=== PATIENT | female | born 1975 | race Caucasian/White ===

== ENCOUNTER → 2017-11-18 | Outpatient (CLI) | payer BC ==
--- NOTE | 2017-11-18 10:41 | MM ---
Reason for exam: clinical finding. Last mammogram was performed 4 years and 6 months ago. History: Family history of breast cancer in grandmother. Took hormonal contraceptives beginning at age 18. Physical Findings: Nurse did not find any significant physical abnormalities on exam. MG 3D Diag Mammo W/Cad CRISTOPHER Bilateral CC and MLO view(s) were taken. Prior study comparison: May 09, 2013, CAD bilateral diagnostic mammogram. The breast tissue is heterogeneously dense. This may lower the sensitivity of mammography. There is chronic nodularity in the left breast, stable. No significant new findings when compared with previous films. These results were verbally communicated with the patient and result sheet given to the patient on 11/18/17. ASSESSMENT: Benign, BI-RAD 2 RECOMMENDATION: Routine screening mammogram of both breasts in 1 year.
== END | disposition home or self-care (01) ==
LOC: RADMAMWWP 07:40
PROVIDERS: ATTEND Family Medicine
DX: N64.4 Mastodynia (principal)
CPT/HCPCS: 77066; G0279

== ENCOUNTER → 2018-09-08 | Outpatient (CLI) | payer BC ==
[2018-09-09 00:29] LABS: T4, Free (Free Thyroxine) 1.1 ng/dL (0.80-1.80)
== END | disposition home or self-care (01) ==
LOC: LABWHC1 17:17
PROVIDERS: ATTEND Internal Medicine
DX: E06.3 Autoimmune thyroiditis (principal)
CPT/HCPCS: 36415; 84439; 84443

== ENCOUNTER → 2018-09-27 | Outpatient (CLI) | payer BC ==
[2018-09-27 17:51] LABS: Basophils # (A) 0.1 k/uL (0-0.2); Basophils % (A) 1 %; Eosinophils # (A) 0.3 k/uL (0-0.7); Eosinophils % (A) 2 %; HCT 41.2 % (34.0-46.0); HGB 13.2 gm/dL (11.4-16.0); Lymphocytes # (A) 3.3 k/uL (1.0-4.8); Lymphocytes % (A) 28 %; MCH 29.1 pg (25.0-35.0); MCHC 32.2 g/dL (31.0-37.0); MCV 90.6 fL (80.0-100.0); Mean Platelet Volume 7.5; Monocytes # (A) 0.7 k/uL (0-1.0); Monocytes % (A) 6 %; Neutrophils # (A) 7.3 k/uL (1.3-7.7); Neutrophils % (A) 62 %; Platelet Count 288 k/uL (150-450); RBC 4.54 m/uL (3.80-5.40); WBC 11.9 k/uL (3.8-10.6)
== END ==
LOC: LABPAT 17:09
PROVIDERS: ATTEND Obstetrics & Gynecology
DX: Z01.812 Encounter for preprocedural laboratory examination (principal); N92.0 Excessive and frequent menstruation with regular cycle; N94.6 Dysmenorrhea, unspecified
CPT/HCPCS: 36415; 85025

== ENCOUNTER 2018-10-11 08:47 | Day surgery (SDC) | payer BC ==
[2018-10-04 13:25] VITALS: BMI 27.8
[~2018-10-11 08:47] MED LIST: DEXAMETHASONE SOD PHOSPHATE 10 MG/ML 1 ML VIAL IV ONE; LACTATED RINGERS 1,000 ML IV SCH; ONDANSETRON 4 MG/2 ML VIAL IVP ONE; Pre Op ABX Message 1 EACH MISC MISCELLANE ONE
[2018-10-11] MEDS ORDERED: LIDOCAINE 1% 20 ML VIAL (10MG/ML) FOR IV START INTRADERMA ONE (09:25)
[2018-10-11] MEDS ORDERED: MIDAZOLAM 2 MG/2 ML VIAL ONE (10:17)
[2018-10-11] MEDS ORDERED: KETOROLAC 30 MG/ML 1 ML VIAL ONE (10:17)
[2018-10-11] MEDS ORDERED: fentaNYL (PF) 50 MCG/ML 2 ML AMP ONE (10:17)
[2018-10-11] MEDS ORDERED: PROPOFOL 10 MG/ML 20 ML VIAL IV ONE (10:17)
[2018-10-11] MEDS ORDERED: LIDOCAINE 1% INJ 10MG/ML (20 ML MDV) ONE (10:17)
--- NOTE | 2018-10-11 10:50 | P.OP ---
Date of Procedure: 10/11/18 Preoperative Diagnosis: Menorrhagia, dysmenorrhea Postoperative Diagnosis: Same, normal-appearing uterine cavity Procedure(s) Performed: Hysteroscopy, NovaSure endometrial ablation Anesthesia: RANDOLPHA Surgeon: Alma Delarosa Estimated Blood Loss (ml): 5 IV fluids (ml): 300 Urine output (ml): 50 Description of Procedure: Patient is brought to the operating suite where a general anesthetic is administered without difficulty. She's placed in the dorsal lithotomy position. The cervix, vagina, perineum are all prepped and draped in usual sterile fashion. Urine hCG is negative. The appropriate timeout is performed to assure proper patient and procedural identification. Examination under anesthesia reveals a small anteverted uterus, negative adnexa bilaterally. Bladder is drained for approximately 50 mL of clear yellow urine. Weighted speculum was placed into the vagina and the anterior lip of the cervix is grasped with a double-tooth tenaculum. Cervix is gently and systematically dilated using Hanks dilators after the uterus sounds to a depth of 8 cm in the anteverted position. Hysteroscope was placed and fluid is infused. Cavity is distended and inspected. There are no polyps, septa, or defects. Hysteroscope was removed. The NovaSure wand is then placed into the cavity and seated properly. Uterine length of 5.0 cm, width of 4.1 cm is calibrated. For 63 seconds and a power of 113 W the procedure is carried out. When the machine turned off the wand is reduced and removed. Hyst eroscope was once again placed, cavity is distended and noted to be uniformly blanched. All sponge needle and enhancement counts are correct at the and of the procedure. Cervix is clean and dry. Patient is brought back to recovery room in excellent condition with stable vital signs including a pulse of 53, pressure 95/52. Toradol is given prior to leaving the operative room. Patient will foll ow-up with me in the office in 2 weeks.
[2018-10-11 11:00] VITALS: TEMP 97.8
[2018-10-11 11:06] VITALS: RESP 16
[2018-10-11] MEDS: HYDROmorphone 0.5 MG/0.5 ML SYRINGE IVP PRN ×2 (11:33→11:42)
[2018-10-11 12:10] VITALS: BP 101/58; PULSE 74
== END 2018-10-11 12:21 | disposition home or self-care (01) ==
LOC: OR 08:47
PROVIDERS: ATTEND Obstetrics & Gynecology
DX: N92.0 Excessive and frequent menstruation with regular cycle (principal); N94.6 Dysmenorrhea, unspecified; N83.209 Unspecified ovarian cyst, unspecified side; E78.5 Hyperlipidemia, unspecified; I49.9 Cardiac arrhythmia, unspecified; F17.210 Nicotine dependence, cigarettes, uncomplicated; Q17.8 Other specified congenital malformations of ear; Z79.890 Hormone replacement therapy
CPT/HCPCS: 81025; 58563; J2250; J1100; J2405; J2001; J3010; J1885; J2704; J1170

== ENCOUNTER → 2019-01-09 | Outpatient (CLI) | payer BC ==
[2019-01-09 23:35] LABS: T4, Free (Free Thyroxine) 1.2 ng/dL (0.80-1.80)
== END | disposition home or self-care (01) ==
LOC: LABWHC1 17:12
PROVIDERS: ATTEND Internal Medicine
DX: E06.3 Autoimmune thyroiditis (principal)
CPT/HCPCS: 36415; 84439; 84443

== ENCOUNTER → 2020-06-03 | Outpatient (CLI) | payer BC ==
--- NOTE | 2020-06-05 10:55 | MM ---
Reason for exam: screening (asymptomatic). Last mammogram was performed 2 years and 6 months ago. History: Family history of breast cancer in grandmother. Took hormonal contraceptives beginning at age 18. Physical Findings: A clinical breast exam by your physician is recommended on an annual basis and results should be correlated with mammographic findings. MG 3D Screening Mammo W/Cad Bilateral CC and MLO view(s) were taken. Prior study comparison: November 18, 2017, bilateral MG 3d diag mammo w/cad CRISTOPHER. May 09, 2013, CAD bilateral diagnostic mammogram. The breast tissue is heterogeneously dense. This may lower the sensitivity of mammography. Finding: There is a oval lobulated mass in the upper outer quadrant of the left breast. No significant changes in finding since November 18, 2017 and May 09, 2013. ASSESSMENT: Benign, BI-RAD 2 RECOMMENDATION: Routine screening mammogram of both breasts in 1 year.
== END | disposition home or self-care (01) ==
LOC: RADMAMWWP 08:12
PROVIDERS: ATTEND Family Medicine
DX: Z12.31 Encounter for screening mammogram for malignant neoplasm of breast (principal)
CPT/HCPCS: 77063; 77067

== ENCOUNTER 2021-04-12 21:10 | Emergency (ER) | payer BC ==
[2021-04-12 21:15] VITALS: BP 154/87; TEMP 98.2
--- NOTE | 2021-04-12 21:42 | ED ---
Upper Extremity HPI - General Chief Complaint: Extremity Injury, Upper Stated Complaint: L arm pain & swelling Time Seen by Provider: 04/12/21 21:16 Source: patient Mode of arrival: ambulatory Limitations: no limitations - History of Present Illness Initial Comments: 45 year-old female patient presents to the emergency department for evaluation of redness and swelling to the left upper arm. States she was walking through the grocery store when she felt a sharp pain in her arm. States that the area has become red and swollen. Denies any fever or chills. She does not believe she was stung or bitten by anything. Denies swelling or pain radiating down the arm. Denies any known injury. Does have history of lymph node surgery to the left axilla. Does not have any history of cancer. No trauma to the arm. - Related Data Home Medications Medication Instructions Recorded Confirmed Levothyroxine Sodium [Synthroid] 75 mcg PO QAM 10/04/18 10/11/18 Allergies Allergy/AdvReac Type Severity Reaction Status Date / Time No Known Allergies Allergy Verified 04/12/21 21:15 Review of Systems ROS Statement: Those systems with pertinent positive or pertinent negative responses have been documented in the HPI. ROS Other: All systems not noted in ROS Statement are negative. Past Medical History Past Medical History: Thyroid Disorder History of Any Multi-Drug Resistant Organisms: None Reported Past Surgical History: Ear Surgery Additional Past Surgical History / Comment(s): clovis arm surgery Past Psychological History: No Psychological Hx Reported Smoking Status: Current every day smoker Past Alcohol Use History: None Reported Past Drug Use History: None Reported General Exam Limitations: no limitations General appearance: alert, in no apparent distress, other (This is a well- developed, well-nourished adult female patient in no acute distress. Vital signs upon presentation are temperature 98.2F, pulse 111, respirations 20, blo od pressure 154/87, pulse ox 99% on room air.) ENT exam: Present: normal exam, normal oropharynx, mucous membranes moist Respiratory exam: Present: normal lung sounds bilaterally. Absent: respiratory distress, wheezes, rales, rhonchi, stridor Cardiovascular Exam: Present: regular rate, normal rhythm, normal heart sounds. Absent: systolic murmur, diastolic murmur, rubs, gallop, clicks Extremities exam: Present: normal inspection, full ROM, normal capillary refill, other (Patch of erythema, swelling, warmth to the left upper arm. Radial pulses 2+.). Absent: tenderness, pedal edema, joint swelling, calf tenderness Neurological exam: Present: alert, oriented X3, CN II-XII intact Psychiatric exam: Present: normal affect, normal mood Skin exam: Present: warm, dry, intact, normal color. Absent: rash Course Vital Signs 04/12/21 04/12/21 21:11 22:52 Temperature 98.2 F Pulse Rate 111 H 86 Respiratory 20 16 Rate Blood Pressure 154/87 O2 Sat by Pulse 99 98 Oximetry Medical Decision Making - Medical Decision Making 45-year-old female patient presents to the emergency department today for evalu ation of left arm redness and swelling. Physical examination did reveal a patch of erythema with swelling and warmth. Ultrasound of the left arm did showed no evidence for DVT. I did discuss findings and results with the patient. We discussed possible bug bite or sting for as a cause for her symptoms. Physical appearance does appear consistent with this. She is given hydrocortisone cream to apply. Instructed take Benadryl as needed. She is instructed to follow up with her primary care physician for recheck in 1-2 days. Return parameters were discussed in detail. She verbalizes understanding and agrees with this plan. My attending is Dr. Robison. - Radiology Data Radiology results: report reviewed, image reviewed Ultrasound of the left arm is obtained. Report reviewed in its entirety. Impression by Dr. rByant shows no sign of deep pain thrombosis in the left arm. Disposition Clinical Impression: Left arm pain Disposition: HOME SELF-CARE Condition: Good Instructions (If sedation given, give patient instructions): Insect Bite or Sting (ED), Arm Pain (ED) Additional Instructions: Use cream three times daily to aid with itching and swelling. Follow up with your primary care physician for recheck in 1-2 days. Return for any new, worsening, or concerning symptoms. Is patient prescribed a controlled substance at d/c from ED?: No Referrals: Fredy Tobias III, MD [Primary Care Provider] - 1-2 days Time of Disposition: 22:31
--- NOTE | 2021-04-12 22:25 | US ---
EXAMINATION TYPE: US venous doppler duplex UE LT DATE OF EXAM: 04/12/2021 COMPARISON: NONE CLINICAL HISTORY: Left arm redness/swelling. SIDE PERFORMED: left Left Arm: Negative for DVT Area of redness scanned, no superficial thrombus seen. IMPRESSION: No sign of deep vein thrombosis in the left arm.
[2021-04-12] MEDS ORDERED: HYDROCORTISONE 1% CREAM 30 GM TUBE TOPICAL STA (22:30)
[2021-04-12 22:52] VITALS: PULSE 86; RESP 16
== END 2021-04-12 22:52 | disposition home or self-care (01) ==
LOC: EC 21:10
DX: M79.602 Pain in left arm (principal); M79.89 Other specified soft tissue disorders; F17.200 Nicotine dependence, unspecified, uncomplicated; Z79.890 Hormone replacement therapy
CPT/HCPCS: 99283

== ENCOUNTER → 2021-11-18 | Outpatient (CLI) | payer BC ==
--- NOTE | 2021-11-18 17:08 | US ---
EXAMINATION TYPE: US abd limited kidneys/bladder DATE OF EXAM: 11/18/2021 COMPARISON: NONE CLINICAL HISTORY: M54.50 Low Back Pain. EXAM MEASUREMENTS: Liver Length: 11.7 cm Gallbladder Wall: 0.3 cm CBD: 0.2 cm Right Kidney: 10.8 x 3.9 x 3.9 cm Left Kidney: 10.3 x 5.3 x 4.2 cm Pancreas: Obscured by bowel gas Liver: wnl Gallbladder: wnl CBD: wnl Right Kidney: No hydronephrosis or masses seen Left Kidney: echogenic foci, probable stone measuring 0.4 x 0.2 x 0.4cm Bladder: not fully distended, urinary bladder wall thickening would be difficult to exclude. IMPRESSION: 1. Left renal calcification without obstruction. 2. Nondistended urinary bladder. This may account for apparent wall thickening. Consider additional w orkup of the urinary bladder.
== END | disposition home or self-care (01) ==
LOC: RADUSWWP 09:00
PROVIDERS: ATTEND Family Medicine
DX: N28.89 Other specified disorders of kidney and ureter (principal); N32.89 Other specified disorders of bladder
CPT/HCPCS: 76705; 76770

== ENCOUNTER → 2021-11-27 | Outpatient (CLI) | payer BC ==
--- NOTE | 2021-11-28 11:51 | MM ---
Reason for exam: screening (asymptomatic). Last mammogram was performed 1 year and 6 months ago. History: Family history of breast cancer in grandmother. Took hormonal contraceptives beginning at age 18. Physical Findings: A clinical breast exam by your physician is recommended on an annual basis and results should be correlated with mammographic findings. MG 3D Screening Mammo W/Cad Bilateral CC and MLO view(s) were taken. Prior study comparison: June 03, 2020, bilateral MG 3d screening mammo w/cad. November 18, 2017, bilateral MG 3d diag mammo w/cad CRISTOPHER. The breast tissue is heterogeneously dense. This may lower the sensitivity of mammography. There is no discrete abnormality. ASSESSMENT: Negative, BI-RAD 1 RECOMMENDATION: Routine screening mammogram of both breasts in 1 year.
== END | disposition home or self-care (01) ==
LOC: RADMAMWWP 16:54
PROVIDERS: ATTEND Family Medicine
DX: Z12.31 Encounter for screening mammogram for malignant neoplasm of breast (principal); Z80.3 Family history of malignant neoplasm of breast
CPT/HCPCS: 77063; 77067

== ENCOUNTER → 2021-12-01 | Outpatient (CLI) | payer BC ==
--- NOTE | 2021-12-01 13:12 | XR ---
EXAMINATION TYPE: XR KUB DATE OF EXAM: 12/01/2021 HISTORY: Pain Comparison: None.Single KUB is submitted for interpretation. Findings: Right renal calculi: None Visualized. Right ureteral calculi: None Visualized. Left renal calculi: None Visualized. Left ureteral calculi: None Visualized. Pelvic calcifications: Calcification left hemipelvis. Bowel gas pattern is unremarkable. No free air. No mass effects. IMPRESSION: 1. No definite renal or ureteral calculi seen.
== END | disposition home or self-care (01) ==
LOC: RADXRMAIN 12:20
PROVIDERS: ATTEND Urology
DX: R10.9 Unspecified abdominal pain (principal)
CPT/HCPCS: 74018

== ENCOUNTER 2022-04-17 08:17 | Emergency (ER) | payer BC ==
[2022-04-17 09:02] VITALS: RESP 18
[2022-04-17] MEDS ORDERED: KETOROLAC 15 MG/ML 1 ML VIAL IVP STA (09:05)
[2022-04-17] MEDS ORDERED: DEXAMETHASONE SOD PHOSPHATE 10 MG/ML 1 ML VIAL IVP SCH (09:15)
--- NOTE | 2022-04-17 09:16 | ED ---
URI HPI - General Chief Complaint: Upper Respiratory Infection Stated Complaint: Shoulder pain Time Seen by Provider: 04/17/22 09:04 Source: patient, RN notes reviewed Mode of arrival: ambulatory Limitations: no limitations - History of Present Illness Initial Comments: This is a 46-year-old female who presents to the emergency department for left shoulder pain, palpitations, and chest discomfort. She is 9 days out from testing positive for COVID. She was feeling well until last night, when she developed the shoulder pain and chest discomfort. States she has a history of tachycardia, however she currently feels like it is much worse. The shoulder pain is only is triggered by breathing. It is not reproducible with movement. Denies any history of cardiac or pulmonary conditions. She was given a prescription for Paxlovid, however she has not been taking it because she "does not want to". Denies any fevers, chills, sore throat, cough, abdominal pain, nausea, vomiting, diarrhea, back pain, or headaches. Context: other (COVID) Associated Symptoms: chest pain, shortness of breath Treatments Prior to Arrival: none - Related Data Home Medications Medication Instructions Recorded Confirmed Cholecalciferol [Vitamin D3 (25 25 mcg PO DAILY 04/17/22 04/17/22 Mcg = 1000 Iu)] Elderberry Fruit and Flower [Black 1 cap PO DAILY 04/17/22 04/17/22 Elderberry 575 mg Cap] Ibuprofen [Motrin Ib] 600 mg PO HS 04/17/22 04/17/22 Levothyroxine Sodium [Synthroid] 100 mcg PO DAILY 04/17/22 04/17/22 Loratadine [Claritin] 10 mg PO DAILY PRN 04/17/22 04/17/22 Multivitamins, Thera [Multivitamin 1 tab PO DAILY 04/17/22 04/17/22 (formulary)] Previous Rx's Medication Instructions Recorded dexAMETHasone 6 mg PO QAM 5 Days #5 tablet 04/17/22 Allergies Allergy/AdvReac Type Severity Reaction Status Date / Time No Known Allergies Allergy Verified 04/17/22 11:25 Review of Systems ROS Statement: Those systems with pertinent positive or pertinent negative responses have been documented in the HPI. ROS Other: All systems not noted in ROS Statement are negative. Past Medical History Past Medical History: Thyroid Disorder History of Any Multi-Drug Resistant Organisms: None Reported Past Surgical History: Ear Surgery Additional Past Surgical History / Comment(s): clovis arm surgery Past Psychological History: No Psychological Hx Reported Smoking Status: Current every day smoker Past Alcohol Use History: Occasional Past Drug Use History: None Reported General Exam Limitations: no limitations General appearance: alert, in no apparent distress Head exam: Present: atraumatic, normocephalic, normal inspection Respiratory exam: Present: normal lung sounds bilaterally. Absent: respiratory distress, wheezes, rales, rhonchi, stridor Cardiovascular Exam: Present: normal rhythm, tachycardia, normal heart sounds. Absent: systolic murmur, diastolic murmur, rubs, gallop, clicks Extremities exam: Present: other (Minor discomfort with active and passive range of motion of the left shoulder. No palpable tenderness. No swelling, ecchymosis, erythema, or obvious deformities.) Neurological exam: Present: alert, oriented X3, CN II-XII intact Psychiatric exam: Present: normal affect, normal mood Skin exam: Present: warm, dry, intact, normal color. Absent: rash Course Vital Signs 04/17/22 04/17/22 04/17/22 08:59 09:48 11:31 Temperature 98.1 F 98 F Pulse Rate 102 H 98 92 Respiratory 18 18 18 Rate Blood Pressure 123/66 124/68 122/70 O2 Sat by Pulse 99 99 99 Oximetry Medical Decision Making - Medical Decision Making This is a 46-year-old female who presents to the emergency department for left shoulder pain associated with chest discomfort. Chest x-ray had no acute cardiopulmonary process. Lab work was nonactionable. She does not have an elevated troponin or d-dimer to suggest a pulmonary embolus or cardiac damage. Patient was given Toradol and Decadron, and noted substantial improvement in symptoms afterwards. Patient discharged home in stable condition. Prescription for 5 day course of Decadron was provided for additional symptom medical management. Return precautions reviewed in depth, the patient is instructed to return to the emergency department with any new, worsening, or concerning symptoms. Patient verbalized understanding. This case was discussed in detail with the attending ED physician. Presentation, findings, and treatment plan discussed in detail as well. - Lab Data Result diagrams: 04/17/22 09:45 04/17/22 09:45 Lab Results 04/17/22 04/17/22 04/17/22 Range/Units 09:45 09:45 09:45 WBC 7.9 (3.8-10.6) k/uL RBC 5.11 (3.80-5.40) m/uL Hgb 15.2 (11.4-16.0) gm/dL Hct 46.5 H (34.0-46.0) % MCV 90.9 (80.0-100.0) fL MCH 29.7 (25.0-35.0) pg MCHC 32.6 (31.0-37.0) g/dL RDW 12.1 (11.5-15.5) % Plt Count 344 (150-450) k/uL MPV 8.0 Neutrophils % 61 % Lymphocytes % 30 % Monocytes % 5 % Eosinophils % 2 % Basophils % 1 % Neutrophils # 4.8 (1.3-7.7) k/uL Lymphocytes # 2.4 (1.0-4.8) k/uL Monocytes # 0.4 (0-1.0) k/uL Eosinophils # 0.2 (0-0.7) k/uL Basophils # 0.1 (0-0.2) k/uL D-Dimer 0.28 (<0.60) mg/L FEU Sodium 139 (137-145) mmol/L Potassium 4.1 (3.5-5.1) mmol/L Chloride 105 (98-107) mmol/L Carbon Dioxide 24 (22-30) mmol/L Anion Gap 10 mmol/L BUN 9 (7-17) mg/dL Creatinine 0.70 (0.52-1.04) mg/dL Est GFR (CKD-EPI)AfAm >90 (>60 ml/min/1.73 sqM) Est GFR (CKD-EPI)NonAf >90 (>60 ml/min/1.73 sqM) Glucose 96 (74-99) mg/dL Calcium 9.0 (8.4-10.2) mg/dL Total Bilirubin 1.0 (0.2-1.3) mg/dL AST 24 (14-36) U/L ALT 19 (4-34) U/L Alkaline Phosphatase 124 (38-126) U/L Troponin I (0.000-0.034) ng/mL Total Protein 7.5 (6.3-8.2) g/dL Albumin 4.8 (3.5-5.0) g/dL HCG, Qual Not Detected 04/17/22 Range/Units 09:45 WBC (3.8-10.6) k/uL RBC (3.80-5.40) m/uL Hgb (11.4-16.0) gm/dL Hct (34.0-46.0) % MCV (80.0-100.0) fL MCH (25.0-35.0) pg MCHC (31.0-37.0) g/dL RDW (11.5-15.5) % Plt Count (150-450) k/uL MPV Neutrophils % % Lymphocytes % % Monocytes % % Eosinophils % % Basophils % % Neutrophils # (1.3-7.7) k/uL Lymphocytes # (1.0-4.8) k/uL Monocytes # (0-1.0) k/uL Eosinophils # (0-0.7) k/uL Basophils # (0-0.2) k/uL D-Dimer (<0.60) mg/L FEU Sodium (137-145) mmol/L Potassium (3.5-5.1) mmol/L Chloride (98-107) mmol/L Carbon Dioxide (22-30) mmol/L Anion Gap mmol/L BUN (7-17) mg/dL Creatinine (0.52-1.04) mg/dL Est GFR (CKD-EPI)AfAm (>60 ml/min/1.73 sqM) Est GFR (CKD-EPI)NonAf (>60 ml/min/1.73 sqM) Glucose (74-99) mg/dL Calcium (8.4-10.2) mg/dL Total Bilirubin (0.2-1.3) mg/dL AST (14-36) U/L ALT (4-34) U/L Alkaline Phosphatase (38-126) U/L Troponin I <0.012 (0.000-0.034) ng/mL Total Protein (6.3-8.2) g/dL Albumin (3.5-5.0) g/dL HCG, Qual - Radiology Data Radiology results: report reviewed, image reviewed Disposition Clinical Impression: Left shoulder pain Disposition: HOME SELF-CARE Instructions (If sedation given, give patient instructions): Shoulder Pain (ED), COVID-19 (Coronavirus Disease 2019) (ED), How to Recover from COVID-19 at Home (ED) Additional Instructions: Return to the emergency department with any new, worsening, or concerning symptoms. Take the Dexamethasone for 6 days. Follow up with your primary care provider next week. Prescriptions: dexAMETHasone 6 mg PO QAM 5 Days #5 tablet Is patient prescribed a controlled substance at d/c from ED?: No Referrals: Fredy Tobias III, MD [Primary Care Provider] - 1-2 days
--- NOTE | 2022-04-17 09:25 | XR ---
EXAMINATION TYPE: XR chest 2V DATE OF EXAM: 04/17/2022 COMPARISON: 06/09/2016 INDICATION: Painful breathing and shoulder pain TECHNIQUE: Frontal and lateral views of the chest are obtained. FINDINGS: The heart size is normal. The pulmonary vasculature is normal. The lungs are clear. IMPRESSION: 1. No acute pulmonary process.
[2022-04-17 09:57] LABS: Basophils # (A) 0.1 k/uL (0-0.2); Basophils % (A) 1 %; Eosinophils # (A) 0.2 k/uL (0-0.7); Eosinophils % (A) 2 %; HCT 46.5 % (34.0-46.0); HGB 15.2 gm/dL (11.4-16.0); Lymphocytes # (A) 2.4 k/uL (1.0-4.8); Lymphocytes % (A) 30 %; MCH 29.7 pg (25.0-35.0); MCHC 32.6 g/dL (31.0-37.0); MCV 90.9 fL (80.0-100.0); Monocytes # (A) 0.4 k/uL (0-1.0); Monocytes % (A) 5 %; Neutrophils # (A) 4.8 k/uL (1.3-7.7); Neutrophils % (A) 61 %; Platelet Count 344 k/uL (150-450); RBC 5.11 m/uL (3.80-5.40); RDW 12.1 % (11.5-15.5); WBC 7.9 k/uL (3.8-10.6)
[2022-04-17 10:26] LABS: ALT 19 U/L (4-34); AST 24 U/L (14-36); African American GFR (CKD) >90 (>60 ml/min/1.73 sqM); Albumin 4.8 g/dL (3.5-5.0); Alkaline Phosphatase 124 U/L (38-126); Anion Gap 10 mmol/L; Blood Urea Nitrogen 9 mg/dL (7-17); Carbon Dioxide 24 mmol/L (22-30); Chloride 105 mmol/L (98-107); Glucose 96 mg/dL (74-99); Non-African American GFR(CKD) >90 (>60 ml/min/1.73 sqM); Potassium 4.1 mmol/L (3.5-5.1); Sodium 139 mmol/L (137-145); Total Protein 7.5 g/dL (6.3-8.2)
[2022-04-17 11:07] LABS: HCG,Qualitative Serum Not Detected
[2022-04-17 11:34] VITALS: BP 122/70; PULSE 92; TEMP 98
== END 2022-04-17 11:31 | disposition home or self-care (01) ==
LOC: EC 08:17
DX: M25.512 Pain in left shoulder (principal); U07.1 COVID-19; E07.9 Disorder of thyroid, unspecified; F17.200 Nicotine dependence, unspecified, uncomplicated; Z79.890 Hormone replacement therapy
CPT/HCPCS: 99285; 96374; 96375; 36415; 93005; 85379; 80053; 84484; 85025; 84703; 71046; J1100; J1885

== ENCOUNTER 2023-03-30 16:32 | Emergency (ER) | payer BC ==
[2023-03-30 16:53] VITALS: BP 160/82; PULSE 122; RESP 18; TEMP 98.6
--- NOTE | 2023-03-30 17:13 | ED ---
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 Patient states 2 days ago started to experience intermittent palpitations and lightheadedness. Today states that she is feeling chest tightness. Patient is a pack-a-day smoker for the past 30 years. - Related Data Home Medications Medication Instructions Recorded Confirmed Cholecalciferol [Vitamin D3 (25 25 mcg PO DAILY 04/17/22 04/17/22 Mcg = 1000 Iu)] Elderberry Fruit and Flower [Black 1 cap PO DAILY 04/17/22 04/17/22 Elderberry 575 mg Cap] Ibuprofen [Motrin Ib] 600 mg PO HS 04/17/22 04/17/22 Levothyroxine Sodium [Synthroid] 100 mcg PO DAILY 04/17/22 04/17/22 Loratadine [Claritin] 10 mg PO DAILY PRN 04/17/22 04/17/22 Multivitamins, Thera [Multivitamin 1 tab PO DAILY 04/17/22 04/17/22 (formulary)] Previous Rx's Medication Instructions Recorded dexAMETHasone [Decadron] 6 mg PO QAM 5 Days #5 tablet 04/17/22 Allergies Allergy/AdvReac Type Severity Reaction Status Date / Time No Known Allergies Allergy Verified 03/30/23 16:53 Review of Systems ROS Statement: Those systems with pertinent positive or pertinent negative responses have been documented in the HPI. ROS Other: All systems not noted in ROS Statement are negative. Past Medical History Past Medical History: Thyroid Disorder History of Any Multi-Drug Resistant Organisms: None Reported Past Surgical History: Ear Surgery Additional Past Surgical History / Comment(s): clovis arm surgery Past Psychological History: No Psychological Hx Reported Smoking Status: Current every day smoker Past Alcohol Use History: Occasional Past Drug Use History: None Reported General Exam Limitations: no limitations General appearance: alert, in no apparent distress Neck exam: Present: normal inspection Extremities exam: Present: normal inspection Back exam: Present: normal inspection Neurological exam: Present: alert Course Vital Signs 03/30/23 16:47 Temperature 98.6 F Pulse Rate 122 H Respiratory 18 Rate Blood Pressure 160/82 O2 Sat by Pulse 98 Oximetry Chest Pain MDM - MDM Quick note performed. Signed Giovanni Rodrigze PA-C Patient seen and quick note performed. However, patient eloped prior to workup being completed and being roomed/formally being seen by provider. Disposition Clinical Impression: Chest pain Disposition: LEFT AGAINST MEDICAL ADVICE Is patient prescribed a controlled substance at d/c from ED?: No Referrals: Fredy Tobias III, MD [Primary Care Provider] - 1-2 days
--- NOTE | 2023-03-30 18:48 | XR ---
EXAMINATION TYPE: XR chest 2V DATE OF EXAM: 03/30/2023 COMPARISON: 04/17/2022 HISTORY: Chest pain TECHNIQUE: Frontal and lateral views of the chest are obtained. FINDINGS: There is no focal air space opacity. No evidence for pneumothorax. No pleural effusion. The cardiac silhouette size is within normal limits. The osseous structures are grossly intact. IMPRESSION: 1. No acute cardiopulmonary process.
[2023-03-30 20:22] LABS: ALT 22 U/L (4-34); AST 23 U/L (14-36); African American GFR (CKD) >90 (>60 ml/min/1.73 sqM); Albumin 4.4 g/dL (3.5-5.0); Alkaline Phosphatase 102 U/L (38-126); Amylase 48 U/L (30-110); Anion Gap 11 mmol/L; Blood Urea Nitrogen 8 mg/dL (7-17); Calcium 9.4 mg/dL (8.4-10.2); Carbon Dioxide 20 mmol/L (22-30); Chloride 106 mmol/L (98-107); Glucose 107 mg/dL (74-99); Lipase 57 U/L (23-300); Magnesium 1.8 mg/dL (1.6-2.3); Non-African American GFR(CKD) >90 (>60 ml/min/1.73 sqM); Sodium 137 mmol/L (137-145); Total Bilirubin 0.3 mg/dL (0.2-1.3); Total Protein 7.6 g/dL (6.3-8.2)
[2023-03-30 20:25] LABS: Basophils # (A) 0.1 k/uL (0-0.2); Basophils % (A) 0 %; Eosinophils # (A) 0.2 k/uL (0-0.7); Eosinophils % (A) 1 %; HCT 46.7 % (34.0-46.0); HGB 15.5 gm/dL (11.4-16.0); Lymphocytes # (A) 3.8 k/uL (1.0-4.8); Lymphocytes % (A) 26 %; MCH 30.2 pg (25.0-35.0); MCHC 33.2 g/dL (31.0-37.0); MCV 90.9 fL (80.0-100.0); Mean Platelet Volume 8.3; Monocytes # (A) 0.7 k/uL (0-1.0); Monocytes % (A) 5 %; Neutrophils % (A) 67 %; Platelet Count 334 k/uL (150-450); RBC 5.14 m/uL (3.80-5.40); RDW 12.6 % (11.5-15.5)
[2023-03-30 21:22] LABS: INR 0.9 (<1.2); Prothrombin Time 9.5 sec (9.0-12.0)
== END 2023-03-30 19:42 | disposition left against medical advice (07) ==
LOC: EC 16:32
DX: I45.10 Unspecified right bundle-branch block (principal); E07.9 Disorder of thyroid, unspecified; F17.200 Nicotine dependence, unspecified, uncomplicated; Z79.890 Hormone replacement therapy
CPT/HCPCS: 36415; 71046; 80053; 82150; 83690; 83735; 84484; 85025; 85379; 85610; 85730; 93005; 99285

== ENCOUNTER 2023-03-30 22:25 | Emergency (ER) | payer BC ==
[2023-03-30 22:34] VITALS: BP 146/93; PULSE 96; RESP 16; TEMP 98.8
--- NOTE | 2023-03-30 22:54 | ED ---
General Adult HPI - General Chief complaint: Chest Pain Stated complaint: abnormal heart results Time Seen by Provider: 03/30/23 22:27 Source: patient, RN notes reviewed, old records reviewed Mode of arrival: ambulatory Limitations: no limitations - History of Present Illness Initial comments: Patient is a 47-year-old female who presents emergency department after being called back in for labs that were abnormal. Patient was evaluated earlier and left AMA and asked for us to call her back if any of the labs returned abnormal. She has a history of thyroid disease. No cardiac history. Patient has been having intermittent palpitations for multiple weeks, somewhat more frequent over the last 2 days. This has happened previously. Unknown what is causing it. Had some lightheadedness with it as well as well as a burning chest discomfort that resolved with Tums. Have a history of acid reflux. He was uncertain what was causing her symptoms which is why she presents for further evaluation. No recent long distant travel. No history of blood clots. No lower extremity edema. No cough, fevers, chills. No history of cardiac disease. No other acute complaints at this time. Presents for further evaluation at this time. States symptoms have all resolved and she is asymptomatic at this time. Was seen over 3 hours ago. - Related Data Home Medications Medication Instructions Recorded Confirmed Cholecalciferol [Vitamin D3 (25 25 mcg PO DAILY 04/17/22 04/17/22 Mcg = 1000 Iu)] Elderberry Fruit and Flower [Black 1 cap PO DAILY 04/17/22 04/17/22 Elderberry 575 mg Cap] Ibuprofen [Motrin Ib] 600 mg PO HS 04/17/22 04/17/22 Levothyroxine Sodium [Synthroid] 100 mcg PO DAILY 04/17/22 04/17/22 Loratadine [Claritin] 10 mg PO DAILY PRN 04/17/22 04/17/22 Multivitamins, Thera [Multivitamin 1 tab PO DAILY 04/17/22 04/17/22 (formulary)] Previous Rx's Medication Instructions Recorded dexAMETHasone [Decadron] 6 mg PO QAM 5 Days #5 tablet 04/17/22 Allergies Allergy/AdvReac Type Severity Reaction Status Date / Time No Known Allergies Allergy Verified 03/30/23 16:53 Review of Systems ROS Statement: Those systems with pertinent positive or pertinent negative responses have been documented in the HPI. Review of Systems: CONST: Denies fever EYES: Denies blurry vision ENT: Denies nasal congestion C/V: Denies Chest pain RESP: Denies shortness of breath GI: Denies abdominal pain : Denies dysuria SKIN: Denies rash. MSK: Denies joint pain. NEURO: Denies headache ROS Other: All systems not noted in ROS Statement are negative. Past Medical History Past Medical History: Thyroid Disorder History of Any Multi-Drug Resistant Organisms: None Reported Past Surgical History: Ear Surgery Additional Past Surgical History / Comment(s): clovis arm surgery Past Psychological History: No Psychological Hx Reported Smoking Status: Current every day smoker Past Alcohol Use History: Occasional Past Drug Use History: None Reported General Exam - General Exam Comments Initial Comments: General: Appears in no acute distress. HEAD: Normal with no signs of head trauma. EYES: PERRLA, EOMI, conjunctiva normal, no discharge. ENT: Hearing grossly intact, normal oropharynx. RESPIRATORY: Clear breath sounds bilaterally. No wheezes, rales, or rhonchi. C/V: Regular rate and rhythm. S1 and S2 auscultated, no edema, peripheral pulses 2+ and intact throughout ABD: Abd is soft, nontender, nondistended EXT: Normal range of motion, no obvious deformity SKIN: No rashes or lesions observed on exposed skin. NEURO: Alert and oriented 4. Limitations: no limitations Course Vital Signs 03/30/23 22:31 Temperature 98.8 F Pulse Rate 96 Respiratory 16 Rate Blood Pressure 146/93 O2 Sat by Pulse 98 Oximetry Medical Decision Making - Medical Decision Making Was pt. sent in by a medical professional or institution (, PA, ART HISTORY PROFESSOR, urgent care, hospital, or care home...) When possible be specific @ -No Did you speak to anyone other than the patient for history (EMS, parent, family, police, friend...)? What history was obtained from this source @ -No Did you review nursing and triage notes (agree or disagree)? Why? @ -I reviewed and agree with nursing and triage notes Were old charts reviewed (outside hosp., previous admission, EMS record, old EKG, old radiological studies, urgent care reports/EKG's, care home records)? Report findings @ -Review chart from earlier when the patient left AMA Differential Diagnosis (chest pain, altered mental status, abdominal pain women, abdominal pain men, vaginal bleeding, weakness, fever, dyspnea, syncope, headache, dizziness, GI bleed, back pain, seizure, CVA, palpatations, mental health, musculoskeletal)? @ -Differential Palpitations Ventricular arrhythmias, atrial arrhythmias, myocardial infarction, anemia, thyrotoxicosis, electrolyte imbalance, hypokalemia, pulmonary embolism, pulmonary disease, drugs, alcohol, anxiety, stress.... This is not meant to be an all-inclusive list. EKG interpreted by me (3pts min.). @ -As above X-rays interpreted by me (1pt min.). @ -None done CT interpreted by me (1pt min.). @ -CT PE reveals no evidence of acute pulmonary embolism. U/S interpreted by me (1pt. min.). @ -None done What testing was considered but not performed or refused? (CT, X-rays, U/S, labs)? Why? @ -None What meds were considered but not given or refused? Why? @ -None Did you discuss the management of the patient with other professionals (professionals i.e. , PA, ART HISTORY PROFESSOR, lab, RT, psych nurse, social science research assistant, pump erector helper, teacher, detention officer, telephonic case manager)? Give summary @ -No Was smoking cessation discussed for >3mins.? @ -No Was critical care preformed (if so, how long)? @ -No Were there social determinants of health that impacted care today? How? (Homelessness, low income, unemployed, alcoholism, drug addiction, transportation, low edu. Level, literacy, decrease access to med. care, usp, rehab)? @ -No Was there de-escalation of care discussed even if they declined (Discuss DNR or withdrawal of care, Hospice)? DNR status @ -No What co-morbidities impacted this encounter? (DM, HTN, Smoking, COPD, CAD, Cancer, CVA, ARF, Chemo, Hep., AIDS, mental health diagnosis, sleep apnea, morbid obesity)? @ -None Was patient admitted / discharged? Hospital course, mention meds given and route, prescriptions, significant lab abnormalities, going to OR and other pertinent info. @ -Based on the patient's presentation and physical exam, presents after being called with abnormal lab results. Patient had a slightly elevated d-dimer earlier today of 0.6. Remainder the cardiac workup within normal limits. Currently asymptomatic with no acute complaints. We will repeat EKG, as well as obtain a second troponin, Covid swab, as well as a CT PE. Patient was in agreement this plan. Vital signs within acceptable limits. Repeat EKG shows no signs of acute ischemia. Unchanged from earlier EKG.CTPE negative for PE. Troponin undetectable. Covid, flu, RSV negative. On reevaluation, patient remains asymptomatic. She is received 2 troponins total this evening both undetectable. Heart score is low. I believe it is safer to be discharged home. We discussed her workup and she was in agreement with the plan. Discussed strict return precautions and follow-up with her PCP. I instructed the patient to follow up with their PCP in the next 1-3 days. I explained that the patient should return to the emergency department if they experience any worsening symptoms. Strict return precautions were discussed with the patient. The patient expressed understanding of these instructions. I answered all questions that the patient had. The patient was discharged home in good condition with their prescriptions and follow up information. Undiagnosed new problem with uncertain prognosis? @ -No Drug Therapy requiring intensive monitoring for toxicity (Heparin, Nitro, Insulin, Cardizem)? @ -No Were any procedures done? @ -No Diagnosis/symptom? @ -Heart palpitations Acute, or Chronic, or Acute on Chronic? @ -Acute Uncomplicated (without systemic symptoms) or Complicated (systemic symptoms)? @ -Uncomplicated Side effects of treatment? @ -none Exacerbation, Progression, or Severe Exacerbation] @ -no Poses a threat to life or bodily function? @ -no - Lab Data Lab Results 03/30/23 03/30/23 Range/Units 22:52 22:53 Troponin I <0.012 (0.000-0.034) ng/mL Influenza Type A (PCR) Not Detected (Not Detectd) Influenza Type B (PCR) Not Detected (Not Detectd) RSV (PCR) Not Detected (Not Detectd) SARS-CoV-2 (PCR) Not Detected (Not Detectd) - EKG Data -: EKG Interpreted by Me EKG Comments: 12-lead Electrocardiogram Interpretation Note EKG was reviewed and interpreted by myself. 12-lead ECG performed at 2257 is interpreted by me as revealing normal sinus rhythm at a rate of 97 beats per minute. Patient has an incomplete right bundle-branch block. Norman is normal. ID interval is 154 ms, QRS duration is 98 ms, QTc is 401 ms.. There were no ST or T wave abnormalities to suggest myocardial ischemia or injury. R wave progression across the precordium was satisfactory. By my interpretation this EKG is non-diagnostic for acute ischemia. Disposition Clinical Impression: Heart palpitations Disposition: HOME SELF-CARE Condition: Good Instructions (If sedation given, give patient instructions): Heart Palpitations (ED) Is patient prescribed a controlled substance at d/c from ED?: No Referrals: None,Stated [Primary Care Provider] - 1-2 days Time of Disposition: 23:45
--- NOTE | 2023-03-30 23:33 | CT ---
EXAMINATION TYPE: CT chest angio for PE DATE OF EXAM: 03/30/2023 COMPARISON: Chest x-ray earlier today HISTORY: PALPITATIONS, ELEVATED D DIMER CT DLP: 338.6 mGycm. Automated Exposure Control for Dose Reduction was Utilized. CONTRAST: CTA scan of the thorax is performed with IV Contrast, patient injected with 100 mL of Isovue 370, pul monary embolism protocol. MIP Images are created on CT scanner and reviewed. FINDINGS: LUNGS: The lungs are grossly clear, there is no concerning parenchymal mass or nodule identified. T here is no pleural effusion or pneumothorax seen. The tracheobronchial tree is patent. MEDIASTINUM: There is satisfactory enhancement of the pulmonary artery and its branches, there is no CT evidence for pulmonary embolism. Satisfactory enhancement of the thoracic aorta without aneurysm or dissection. 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 There are no greater than 1 cm hilar or mediastinal lymph nodes. No cardiomegaly or pericardial effusion is seen. OTHER: No additional significant abnormality is seen. IMPRESSION: 1. No CT evidence for acute pulmonary embolism. 2. No acute pulmonary process.
== END 2023-03-30 23:51 | disposition home or self-care (01) ==
LOC: EC 22:25
DX: R00.2 Palpitations (principal); E07.9 Disorder of thyroid, unspecified; F17.200 Nicotine dependence, unspecified, uncomplicated; Z79.890 Hormone replacement therapy; Z20.822 Contact with and (suspected) exposure to COVID-19
CPT/HCPCS: 36415; 93005; 84484; 87636; 71275; 99285; Q9967

== ENCOUNTER → 2023-09-29 | Outpatient (CLI) | payer BC ==
[2023-09-29 15:49] LABS: Basophils % (A) 1.3 %; Eosinophils # (A) 0.15 X 10*3/uL (0.04-0.35); HCT 44.5 % (37.2-46.3); HGB 14.2 g/dL (12.0-15.0); Lymphocytes # (A) 2.79 X 10*3/uL (0.90-5.00); Lymphocytes % (A) 36.8 %; MCH 28.9 pg (27.0-32.0); MCHC 31.9 g/dL (32.0-37.0); MCV 90.4 FL (80.0-97.0); Mean Platelet Volume 10.7 FL (9.5-12.2); Monocytes % (A) 6.6 %; NRBC Per 100 WBC 0 X 10*3/uL (0.00-0.01); Neutrophils # (A) 4.03 X 10*3/uL (1.80-7.70); Platelet Count 368 X 10*3/uL (140-440); RBC 4.92 X 10*6/uL (4.10-5.20); RDW 12.7 % (11.5-14.5); WBC 7.59 X 10*3/uL (4.50-10.00)
[2023-09-29 16:24] LABS: ALT 31 U/L (8-44); AST 22 U/L (13-35); Albumin 4.7 g/dL (3.8-4.9); Albumin/Globulin Ratio 1.81 Ratio (1.60-3.17); Alkaline Phosphatase 123 U/L (41-126); BUN/Creat Ratio 12.71 Ratio (12.00-20.00); Blood Urea Nitrogen 8.9 mg/dL (9.0-27.0); Calcium 9.6 mg/dL (8.7-10.3); Carbon Dioxide 24.3 mmol/L (21.6-31.8); Chloride 104 mmol/L (96-109); Globulin 2.6 g/dL (1.6-3.3); Glucose 116 mg/dL (70-110); Potassium 4.1 mmol/L (3.5-5.5); Sodium 139 mmol/L (135-145); Total Bilirubin 0.4 mg/dL (0.3-1.2); Total Protein 7.3 g/dL (6.2-8.2)
== END | disposition home or self-care (01) ==
LOC: LABWHC1 09:25
PROVIDERS: ATTEND Family Medicine
DX: R10.32 Left lower quadrant pain (principal)
CPT/HCPCS: 36415; 80053; 85025

== ENCOUNTER → 2023-10-19 | Outpatient (CLI) | payer BC ==
--- NOTE | 2023-10-19 09:54 | US ---
EXAMINATION TYPE: US abdomen comp/pelvis limited DATE OF EXAM: 10/19/2023 COMPARISON: 11/18/2021 CLINICAL INDICATION: Female, 48 years old with history of R10.32 LEFT LOWER QUADRANT PAIN; Patient st ates LLQ pain for one month. Hx of left ov cyst. No other pain or symptoms. EXAM MEASUREMENTS: Liver Length: 15.2 cm Gallbladder Wall: 0.3 cm CBD: 0.2 cm Spleen: 8.0 cm Right Kidney: 10.9 x 3.4 x 5.1 cm Left Kidney: 9.8 x 5.6 x 4.6 cm Limited due to overlying bowel and patient body habitus Pancreas: Obscured by bowel gas Liver: Increased echotexture without suspicious mass, cystic structure or dilated ducts. Gallbladder: No stones seen. Wall WNL. CBD: wnl Spleen: wnl as best visualized Right Kidney: No hydronephrosis or masses seen as best visualized Left Kidney: There is a 0.3 x 0.4cm echogenic foci seen mid. Upper IVC: wnl Abd Aorta: wnl. Portions obscured by gas Bladder: wnl Bilateral Jets Seen Yes 1. IMPRESSION: 2. No evidence for acute process. 3. Hepatic steatosis 4. Nonobstructing left renal calculus.
== END | disposition home or self-care (01) ==
LOC: RADUSWWP 06:55
PROVIDERS: ATTEND Family Medicine
DX: K76.0 Fatty (change of) liver, not elsewhere classified (principal); N20.0 Calculus of kidney
CPT/HCPCS: 76700; 76857

== ENCOUNTER → 2025-02-01 | Outpatient (CLI) | payer BC ==
[2025-02-01 11:56] LABS: Basophils # (A) 0.14 X 10*3/uL (0.00-0.10); Basophils % (A) 1.7 %; Eosinophils # (A) 0.24 X 10*3/uL (0.04-0.35); Eosinophils % (A) 2.9 %; HCT 43.0 % (37.2-46.3); HGB 13.5 g/dL (12.0-15.0); Immature Grans, Automated 0.20 %; Lymphocytes # (A) 2.93 X 10*3/uL (0.90-5.00); Lymphocytes % (A) 34.8 %; MCH 28.9 pg (27.0-32.0); MCHC 31.4 g/dL (32.0-37.0); MCV 92.1 FL (80.0-97.0); Monocytes # (A) 0.68 X 10*3/uL (0.20-1.00); Monocytes % (A) 8.1 %; NRBC Per 100 WBC 0 X 10*3/uL (0.00-0.01); Neutrophils # (A) 4.41 X 10*3/uL (1.80-7.70); Neutrophils % (A) 52.3 %; Platelet Count 331 X 10*3/uL (140-440); RBC 4.67 X 10*6/uL (4.10-5.20); RDW 12.6 % (11.5-14.5); WBC 8.42 X 10*3/uL (4.50-10.00)
[2025-02-01 12:08] LABS: Hepatitis A Antibody IgM Nonreactive (Nonreactive); Hepatitis B Surface Antigen Nonreactive (Nonreactive); Hepatitis C IgG Antibody Nonreactive (Nonreactive)
[2025-02-01 13:38] LABS: ALT 24 U/L (8-44); AST 22 U/L (13-35); Cholesterol 187.00 mg/dL (0.00-200.00); Ferritin 85.6 ng/mL (10.0-291.0); HDL Cholesterol 37.70 mg/dL (40.00-60.00); LDL Cholesterol,Calculated 129.8 mg/dL (0.0-131.0); T4, Free (Free Thyroxine) 1.53 ng/dL (0.80-1.80); Triglycerides 97.60 mg/dL (0.00-149.00); VLDL Calculation 19.52 mg/dL (5.00-40.00)
== END | disposition home or self-care (01) ==
LOC: LABWHC1 08:12
PROVIDERS: ATTEND Family Medicine
DX: Z00.00 Encounter for general adult medical examination without abnormal findings (principal); K76.0 Fatty (change of) liver, not elsewhere classified; E06.3 Autoimmune thyroiditis
CPT/HCPCS: 36415; 80061; 80074; 82728; 83036; 84439; 84443; 84450; 84460; 85025